=== PATIENT | male | born 1995 | race Caucasian/White ===

== ENCOUNTER 2019-01-18 10:35 | Emergency (ER) | payer MEDICAID ==
[~2019-01-18] VITALS: Ht 177.8 cm; Wt 74.8 kg
[2019-01-18 10:41] VITALS: BP 130/80
--- NOTE | 2019-01-18 10:42 | NUR ---
AT BEDSIDE FOR EVAL.
[2019-01-18] MEDS ORDERED: SILVER NITRATE APPLICATOR 1 EA BOX ONE (11:06)
--- NOTE | 2019-01-18 11:15 | NUR ---
WOUND CLEANING DONE BY QUANTITATIVE DEVELOPER.
--- NOTE | 2019-01-18 11:16 | NUR ---
Patient discharged to home in stable condition. Written and verbal after care instructions given. Patient verbalizes understanding of instruction.
[2019-01-18] MEDS ORDERED: LIDOCAINE 1% INJ 50 ML MDV IJ ONE (11:30)
== END 2019-01-18 11:24 | disposition home or self-care (01) ==
LOC: ER 10:47
DX: S68.112A Complete traumatic metacarpophalangeal amputation of right middle finger, initial encounter (principal); W26.8XXA Contact with other sharp object(s), not elsewhere classified, initial encounter; Y93.89 Activity, other specified; Y92.89 Other specified places as the place of occurrence of the external cause; Y99.8 Other external cause status